=== PATIENT | male | born 1975 | race Caucasian/White ===

== ENCOUNTER 2018-05-31 07:04 | Emergency (ER) | payer OTHER ==
[2018-05-31 07:20] VITALS: BP 141/83; PULSE 78; TEMP 98.8; BMI 34.9
--- NOTE | 2018-05-31 07:31 | PDOC ---
History of Present Illness - General History Source: Patient Exam Limitations: No Limitations <Kelly Castanon - Last Filed: 05/31/18 08:06> - General History Source: Patient Exam Limitations: No Limitations - History of Present Illness Initial Comments: 05/31/18 08:08 The patient is a 42-year-old male with no significant past medical history presents to the emergency department with L. eye swelling. The patient reports on Tuesday; he was at work moving a fallen tree when he came in contact with a poison Carlos vine. The patient reports the redness and swelling began yesterday, that worsened today morning, states he was unable to open his eyes, but at the ED he is able to open the eyes. The patient states he has redness to the fingers also and mild blurriness to the L. eye, denies pain with eye movement, diplopia, itchiness, or any draining. Allergies: Latex Powder. Social history: No past or present use of tobacco, alcohol or recreational drugs. PCP: Mirna Santana MD <Donna Smith - Last Filed: 05/31/18 08:15> - General Chief Complaint: Poison [place],Poison Carlos Exposure Stated Complaint: POISON CARLOS EXPOSURE Time Seen by Provider: 05/31/18 07:31 Past History - Past Medical History CVA: No COPD: No CHF: No - Immunization History Td Vaccination: No - Suicide/Smoking/Psychosocial Hx Smoking Status: No Smoking History: Never smoked Number of Cigarettes Smoked Daily: 0 Information on smoking cessation initiated: No Hx Alcohol Use: No Drug/Substance Use Hx: No Substance Use Type: None <Kelly Castanon - Last Filed: 05/31/18 08:06> <Donna Smith - Last Filed: 05/31/18 08:15> - Past Medical History Allergies/Adverse Reactions: Allergies Allergy/AdvReac Type Severity Reaction Status Date / Time LATEX POWDER Allergy Uncoded 05/31/18 07:20 Home Medications: Ambulatory Orders No Home Medications 0 dose .ROUTE UTDICT 06/20/12 Hydrocortisone 1% Cream [Hytone 1% Cream -] 1 applic TP TID PRN #1 tube Loratadine [Claritin -] 10 mg PO DAILY #7 tablet 05/31/18 Methylprednisolone [Medrol Dose Richard] 4 mg PO ASDIR #21 tablet 05/31/18 Review of Systems - Review of Systems Able to Perform ROS?: Yes Comments:: 05/31/18 08:09 GENERAL/CONSTITUTIONAL: No fever, no lethargy HEAD, EYES, EARS, NOSE AND THROAT: + Redness and swelling to the L. eye, mild blurry vision. No eye discharge, excessive tearing, diplopia, no pain with eye movement. No ear pain or discharge. No sore throat. CARDIOVASCULAR: No chest pain. RESPIRATORY: No cough, no wheezing. GASTROINTESTINAL: No pain, nausea, vomiting, diarrhea or constipation. GENITOURINARY: No dysuria, no change in urine output MUSCULOSKELETAL: + Bilateral redness to the fingers. No joint pain. No neck or back pain. SKIN: No rash NEUROLOGIC: No headache, loss of consciousness, irritability. ENDOCRINE: No increased thirst. No abnormal weight change. ALLERGIC/IMMUNOLOGIC: No hives or skin allergy. <Donna Smith - Last Filed: 05/31/18 08:15> *Physical Exam - Vital Signs Last Vital Signs Temp Pulse Resp BP Pulse Ox 98.8 F 78 18 141/83 99 05/31/18 07:17 05/31/18 07:17 05/31/18 07:17 05/31/18 07:17 05/31/18 07:17 <Kelly Castanon - Last Filed: 05/31/18 08:06> - Vital Signs Last Vital Signs Temp Pulse Resp BP Pulse Ox 98.8 F 78 18 141/83 99 05/31/18 07:17 05/31/18 07:17 05/31/18 07:17 05/31/18 07:17 05/31/18 07:17 - Physical Exam Comments: 05/31/18 08:08 GENERAL: The patient is in no acute distress. HEAD: Normal with no signs of trauma. EYES: + 7-9 cm area of erythema to the L. eye, no conjunctival injection. Pupils round and reactive. No pain with eye movement no tearing. ENT: Ears normal, nares patent, oropharynx clear without exudates. Moist mucous membranes. NECK: Normal range of motion, supple without lymphadenopathy, JVD, or masses. LUNGS: Breath sounds equal, clear to auscultation bilaterally. No wheezes, and no crackles. HEART:Regular rate and rhythm, normal S1 and S2 without murmur, rub or gallop. ABDOMEN: Soft, nontender, normoactive bowel sounds. No guarding, no rebound. No masses palpable. EXTREMITIES: +erythema to the webspacing of the fingers bilaterally. Normal range of motion, no edema. No clubbing or cyanosis. No tenderness. NEUROLOGICAL: Cranial nerves II through XII grossly intact. Normal speech. No focal neurological deficits. MUSCULOSKELETAL: Back non-tender to palpation, no CVA tenderness SKIN: Warm, Dry, normal turgor, no rashes or lesions noted. <Donna Smith - Last Filed: 05/31/18 08:15> Medical Decision Making - Medical Decision Making 05/31/18 07:56 Mr. Florentino is a 42-year-old male with no significant past medical history presents emergency department due to an ALLERGIC reaction to poison carlos/poison oak. Patient was taking out a tree 2 days ago. He denies he the poison carlos on the tree. When he moved it it touched his hands and face. He will up yesterday with swelling of the left eye, it was so severe that he could not open his eye. Since then the swelling has decreased a little bit so now he is able to open his eye. No fevers, no chills. He has had prior reactions to poison carlos. Will discharge this patient with a Medrol Dosepak, topical corticosteroids. I have also asked this patient to use [facility] Follow up with PMD <Kelly Castanon - Last Filed: 05/31/18 08:06> *DC/Admit/Observation/Transfer - Discharge Dispostion Decision to Admit order: No <Kelly Castanon - Last Filed: 05/31/18 08:06> - Attestations Scribe Attestion: 05/31/18 08:09 Documentation prepared by Donna Smith, acting as medical care manager for Kelly Castanon MD. <Donna Smith - Last Filed: 05/31/18 08:15> Diagnosis at time of Disposition: Poison carlos dermatitis, Allergy to poison carlos - Discharge Dispostion Disposition: HOME - Prescriptions Prescriptions: Hydrocortisone 1% Cream [Hytone 1% Cream -] 1 applic TP TID PRN #1 tube PRN Reason: rash Loratadine [Claritin -] 10 mg PO DAILY #7 tablet Methylprednisolone [Medrol Dose Richard] 4 mg PO ASDIR #21 tablet - Referrals Referrals: Mirna Santana MD [Primary Care Provider] - - Patient Instructions Printed Discharge Instructions: Poisonous Plants: Carlos, [place], and [place]: Beware the Oils, Poison Carlos, Poison [place], Poison [place], DI for Poison Carlos Allergy Additional Instructions: Mr Florentino, Thank you for coming in to the ER today Please take medications as prescribed Please take steroids by mouth You can also apply the Zanfel to the areas of poison carlos exposure. You can use a small amount of the steroid cream to the area that is itchy as well Please monitor for worsening of the swelling Please feel free to return to the ER for any other concerns or complaints Please follow up with your primary care physician within 1 week - Post Discharge Activity Forms/Work/School Notes: Back to Work
== END 2018-05-31 08:19 | disposition home or self-care (01) ==
LOC: JER 07:04
DX: L23.7 Allergic contact dermatitis due to plants, except food (principal); T78.49XA Other allergy, initial encounter
CPT/HCPCS: 99281-25